=== PATIENT | female | born 1965 | race Caucasian/White ===

== ENCOUNTER 2022-04-19 08:30 | Outpatient (RCR) | payer BC, SELFPAY ==
--- NOTE | 2022-01-12 13:22 | MHC.OT.EP ---
[address] [phone] Occupational Therapy Plan of Care Date of Evaluation: 01/12/22 Diagnosis: B hand and wrist pain due to RA Assessment: Pt. is a 56 year old female with dx of rheumatoid arthritis in B hands. Pt. reports a 2 year history of pain and stiffness in R>L hand, primarily at the index and middle finger MP joints. She reports pain has been worsening lately with increased typing and repetitive mouse use. 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 Pt. was educated in joint protection techniques, use of paraffin for pain management, and gentle stretching/AROM exercises to improve mobility. Pt. was also educated in role of OT, POC, and goals for therapy. Pt. would benefit from skilled OT services 1-2x/wk for 4 weeks to address noted barriers and assist in return to PLOF. 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 Thank you once again for your referral.
== END 2022-04-19 14:00 | disposition home or self-care (01) ==
LOC: HO.OT 08:30
PROVIDERS: PCP Internal Medicine; Visit Provider Internal Medicine Rheumatology
DX: M05.79 Rheumatoid arthritis with rheumatoid factor of multiple sites without organ or systems involvement (principal)
CPT/HCPCS: 29125; 97018; 97110; 97165; 97760